=== PATIENT | male | born 1955 | race Caucasian/White ===

== ENCOUNTER → 2016-10-19 | Outpatient (CLI) | payer MEDICARE ==
[~2016-10-19] MED LIST: COLCHICINE0.6 MG PO; COUMADIN1 MG PO; COUMADIN10 MG PO; HYDROCHLOROTHIA25 MG PO; LEVAQUIN750 MG PO; LOVENOX SY120 MG/0.8 SQ; METFORMIN HCL500 MG PO; NEURONTIN100 MG PO; NORCO 10-325 T1 EACH PO; PLAVIX 75 MG TA75 MG PO; VANCOCIN 125MG/2.5ML IV; ZYLOPRIM 100 M100 MG PO
== END ==
DX: Z96.649 Presence of unspecified artificial hip joint (principal)
CPT/HCPCS: 73721

== ENCOUNTER 2016-11-18 13:03 | Emergency (ER) | payer OTHER ==
[2016-11-18 13:40] LABS: RED BLOOD COUNT 5.56 M/UL (4.20-5.50); WHITE BLOOD COUNT 10.4 K/UL (4.5-11.0)
[2016-11-18 14:03] LABS: BUN/CREATININE RATIO 18 (0-10)
[2017-02-28] MEDS ORDERED: COUMADIN1 MG PO (16:02)
[2017-02-28] MEDS ORDERED: METFORMIN HCL500 MG PO (16:03)
[2017-02-28] MEDS ORDERED: PLAVIX 75 MG TA75 MG PO (16:03)
[2017-02-28] MEDS ORDERED: COUMADIN10 MG PO (16:03)
[2017-02-28] MEDS ORDERED: COLCHICINE0.6 MG PO (16:04)
[2017-02-28] MEDS ORDERED: NEURONTIN100 MG PO (16:08)
[2017-02-28] MEDS ORDERED: HYDROCHLOROTHIA25 MG PO (16:09)
[2017-03-03] MEDS ORDERED: LEVAQUIN750 MG PO (19:19)
[2017-03-03] MEDS ORDERED: VANCOCIN 125MG/2.5ML IV (19:20)
[2017-03-07] MEDS ORDERED: NORCO 10-325 T1 EACH PO (14:46)
[2017-03-07] MEDS ORDERED: LOVENOX SY120 MG/0.8 SQ (14:46)
[2017-03-07] MEDS ORDERED: ZYLOPRIM 100 M100 MG PO (14:54)
== END 2016-11-18 15:30 | disposition home or self-care (01) ==
LOC: ER1 13:03
PROVIDERS: Family Medicine
DX: S09.90XA Unspecified injury of head, initial encounter (principal); S13.4XXA Sprain of ligaments of cervical spine, initial encounter; E11.65 Type 2 diabetes mellitus with hyperglycemia; R79.1 Abnormal coagulation profile; F17.200 Nicotine dependence, unspecified, uncomplicated; Z79.01 Long term (current) use of anticoagulants; V46.5XXA Car driver injured in collision with other nonmotor vehicle in traffic accident, initial encounter; Y93.89 Activity, other specified; Y92.410 Unspecified street and highway as the place of occurrence of the external cause
CPT/HCPCS: 36415; 70450; 72125; 80053; 85025; 85610; 85730; 99284

== ENCOUNTER → 2017-02-15 | Outpatient (CLI) | payer MEDICARE ==
[2017-02-15 13:13] LABS: HEMOGLOBIN 16.6 gm/dl (14.0-17.5); RED BLOOD COUNT 5.53 M/UL (4.20-5.50); WHITE BLOOD COUNT 14.3 K/UL (4.5-11.0)
[2017-02-15 13:27] LABS: BUN/CREATININE RATIO 18 (0-10)
== END ==
LOC: OPSV2 11:45
PROVIDERS: Orthopaedic Surgery
DX: Z01.810 Encounter for preprocedural cardiovascular examination (principal); Z01.812 Encounter for preprocedural laboratory examination; Z01.818 Encounter for other preprocedural examination; M17.12 Unilateral primary osteoarthritis, left knee
CPT/HCPCS: 36415; 71020; 80048; 81001; 83036; 85025; 87081; 93005